=== PATIENT | male | born 1960 | race African-American/Black ===

== ENCOUNTER 2020-09-13 19:05 | Inpatient (IN) | payer OTHER ==
[2020-09-13] MEDS ORDERED: ONDANSETRON 4 MG/2 ML VIAL IVPUSH ONE (19:32)
[2020-09-13] MEDS ORDERED: SODIUM CHLORIDE 1,000 ML ONE (19:32)
[2020-09-13] MEDS ORDERED: POTASSIUM CHLORIDE TABS 20 MEQ TABLET.ER (FP) PO ONE ×2 (19:33→19:51)
[2020-09-13 19:51] LABS: BASO % 0.6 % (0-2.0); EOS % 1.3 % (0-4.5); HEMATOCRIT 45.6 % (35.4-49); HEMOGLOBIN 15.5 GM/dl (11.7-16.9); LYMPH % 21.8 % (8-40); MCH 28.5 pg (25.7-33.7); MEAN CELL VOLUME 83.8 fl (80-96); MEAN PLT VOLUME 8.2 fl (7.5-11.1); MONO % 14.2 % (3.8-10.2); NEUT % 62.1 % (42.8-82.8); PLATELET COUNT 243 10^3/uL (134-434); RBC 5.45 M/mm3 (4.00-5.60); RDW 12.7 % (11.9-15.9); WHITE BLOOD COUNT 5.4 K/mm3 (4.0-10.8)
[2020-09-13] MEDS ORDERED: ONDANSETRON 4 MG/2 ML VIAL ONE (19:51)
[2020-09-13 20:11] LABS: ALBUMIN 4.2 g/dl (3.4-5.0); BILIRUBIN,TOTAL 0.7 mg/dl (0.2-1); CALCIUM 8.8 mg/dl (8.5-10); CREATININE 1.1 mg/dl (0.55-1.3); TOT PROT 7.8 g/dl (6.4-8.2)
[2020-09-14] MEDS: SODIUM CHLORIDE 1,000 ML IV SCH ×2 (02:08→23:30)
[2020-09-14 05:00] VITALS: BMI 29.3
[2020-09-14] MEDS: HEPARIN NA (PORCINE) 5,000 UNITS/ML 1ML VIAL SQ SCH ×3 (06:35→21:16)
[2020-09-14] MEDS ORDERED: LORazepam 1 MG TABLET PO PRN (07:59)
[2020-09-14] MEDS ORDERED: ONDANSETRON *ODT* 4 MG TABLET SL PRN (08:00)
[2020-09-14 08:05] LABS: HEMOGLOBIN 13.2 GM/dl (11.7-16.9); MCH 27.6 pg (25.7-33.7); MEAN CELL VOLUME 83.8 fl (80-96); PLATELET COUNT 216 10^3/uL (134-434); RBC 4.77 M/mm3 (4.00-5.60); RDW 12.7 % (11.9-15.9); WHITE BLOOD COUNT 4.1 K/mm3 (4.0-10.8)
[2020-09-14 08:07] LABS: ACTIVATED PTT 38.7 SECONDS (25.2-36.5)
[2020-09-14 08:10] LABS: ALBUMIN 3.5 g/dl (3.4-5.0); BILIRUBIN,TOTAL 0.6 mg/dl (0.2-1); CALCIUM 8.1 mg/dl (8.5-10); CREATININE 1.2 mg/dl (0.55-1.3); TOT PROT 6.5 g/dl (6.4-8.2)
[2020-09-14 08:12] LABS: INR 1.28 (0.82-1.09); PROTHROMBIN TIME (PATIENT) 14.1 SEC (10.2-13.0)
[2020-09-14] MEDS: amLODIPine BESYLATE 5 MG TABLET (FP) PO SCH (09:31)
[2020-09-14] MEDS: ESCITALOPRAM OXALATE 10 MG TABLET PO SCH (09:31)
[2020-09-14] MEDS: LOSARTAN POTASSIUM 50 MG TABLET PO SCH (09:31)
[2020-09-14] MEDS: DEXTROSE 5%-NORMAL SALINE 1,000 ML IV SCH (09:31)
[2020-09-14 10:08] LABS: SARS-CoV-2 NAA Not Detected (Not Detected)
[2020-09-14] MEDS: POTASSIUM CHLORIDE TABS 10 MEQ TABLET.ER (FP) PO SCH ×2 (15:16→21:16)
[2020-09-15] MEDS: HEPARIN NA (PORCINE) 5,000 UNITS/ML 1ML VIAL SQ SCH ×2 (06:23→07:06)
[2020-09-15] MEDS: POTASSIUM CHLORIDE TABS 10 MEQ TABLET.ER (FP) PO SCH (06:23)
[2020-09-15 08:22] LABS: BASO % 0.9 % (0-2.0); EOS % 1.1 % (0-4.5); HEMATOCRIT 42.8 % (35.4-49); HEMOGLOBIN 14.1 GM/dl (11.7-16.9); LYMPH % 27.5 % (8-40); MCH 28.1 pg (25.7-33.7); MEAN CELL VOLUME 85.1 fl (80-96); MEAN PLT VOLUME 8.5 fl (7.5-11.1); MONO % 17.1 % (3.8-10.2); NEUT % 53.4 % (42.8-82.8); PLATELET COUNT 231 10^3/uL (134-434); RBC 5.02 M/mm3 (4.00-5.60); RDW 12.8 % (11.9-15.9); WHITE BLOOD COUNT 5.1 K/mm3 (4.0-10.8)
[2020-09-15 08:23] LABS: ALBUMIN 3.6 g/dl (3.4-5.0); BILIRUBIN,TOTAL 0.4 mg/dl (0.2-1); CALCIUM 8.6 mg/dl (8.5-10); MAGNESIUM 2.1 mg/dL (1.8-2.4); TOT PROT 6.7 g/dl (6.4-8.2)
[2020-09-15] MEDS: DEXTROSE 5%-NORMAL SALINE 1,000 ML IV SCH (09:56)
[2020-09-15] MEDS: amLODIPine BESYLATE 5 MG TABLET (FP) PO SCH (09:59)
[2020-09-15] MEDS: LOSARTAN POTASSIUM 50 MG TABLET PO SCH (09:59)
[2020-09-15] MEDS: ESCITALOPRAM OXALATE 10 MG TABLET PO SCH ×2 (09:59→10:01)
[2020-09-15 11:58] VITALS: BP 136/81; PULSE 70; TEMP 98.7
== END 2020-09-15 13:25 | disposition home or self-care (01) | DRG 440 ==
LOC: FER 19:05 → FM/S 23:25 → UNDOADMIN 09-14 04:40 → FM/S 09-14 04:40
PROVIDERS: ADMIT Internal Medicine; ATTEND Nurse Practitioner Acute Care
DX: K85.90 Acute pancreatitis without necrosis or infection, unspecified (principal); R10.9 Unspecified abdominal pain; R11.2 Nausea with vomiting, unspecified; I10 Essential (primary) hypertension; E78.5 Hyperlipidemia, unspecified; E87.6 Hypokalemia; F41.8 Other specified anxiety disorders; K76.0 Fatty (change of) liver, not elsewhere classified; N20.0 Calculus of kidney; R19.7 Diarrhea, unspecified
CPT/HCPCS: 36415; 71045-TC-FY; 74177-TC; 76705-TC; 80053; 83690; 83735; 84478; 85025; 85610; 85730; 93005; 99285-25; C9803; J1644; Q9967; U0003; U0005